=== PATIENT | female | born 1940 | race Hispanic/Latino ===

== ENCOUNTER → 2018-03-20 | Outpatient (CLI) | payer OTHER, MEDICARE ==
[2018-03-20 13:58] LABS: EOSINOPHILS % (AUTO) 4.1 % (0.0-8.0); HEMATOCRIT 31.6 % (36-48); LYMPHOCYTES % (AUTO) 23.9 % (21.0-51.0); MEAN CORPUSCULAR HEMOGLOBIN 25.3 pg (27.0-33.0); MEAN CORPUSCULAR HGB CONC 32.4 g/dL (32.0-36.0); MONOCYTES % (AUTO) 7.3 % (3.0-13.0); NEUTROPHILS % (AUTO) 63.7 % (40.0-77.0); PLATELET COUNT (AUTO) 285 K/uL (130-400); RED BLOOD CELL COUNT(AUTO) 4.05 MIL/uL (4.00-5.50); RED CELL DISTRIBUTION WIDTH 17.1 % (11.0-15.5); WHITE BLOOD COUNT (AUTO) 6.3 K/uL (4.8-10.8)
[2018-03-20 14:03] LABS: CREATININE 1.2 mg/dL (0.5-1.5); POTASSIUM 4.4 mmol/L (3.5-5.1)
== END | disposition home or self-care (01) ==
LOC: LAB 13:26
PROVIDERS: ATTEND Internal Medicine Gastroenterology
DX: K62.89 Other specified diseases of anus and rectum (principal); D50.9 Iron deficiency anemia, unspecified
CPT/HCPCS: 36415; 80048; 85025

== ENCOUNTER → 2018-03-22 | Outpatient (CLI) | payer OTHER, MEDICARE ==
[~2018-03-22] MED LIST: IOPAMIDOL-370 100 ML VIAL IV ONE
== END | disposition home or self-care (01) ==
LOC: OIH 10:39
PROVIDERS: ATTEND Internal Medicine Gastroenterology
DX: K80.20 Calculus of gallbladder without cholecystitis without obstruction (principal); K42.9 Umbilical hernia without obstruction or gangrene; K44.9 Diaphragmatic hernia without obstruction or gangrene; M48.56XA Collapsed vertebra, not elsewhere classified, lumbar region, initial encounter for fracture; M43.17 Spondylolisthesis, lumbosacral region
CPT/HCPCS: 74178; Q9967

== ENCOUNTER 2019-05-22 07:22 | Day surgery (SDC) | payer OTHER, MEDICARE ==
[2019-05-21 12:32] LABS: BASOPHILS % (AUTO) 0.8 % (0.0-5.0); EOSINOPHILS % (AUTO) 3.5 % (0.0-8.0); HEMATOCRIT 29.5 % (36-48); LYMPHOCYTES % (AUTO) 26.6 % (21.0-51.0); MEAN CORPUSCULAR HEMOGLOBIN 29.4 pg (27.0-33.0); MEAN CORPUSCULAR HGB CONC 33.3 g/dL (32.0-36.0); MEAN CORPUSCULAR VOLUME 88.3 fL (79-99); NEUTROPHILS % (AUTO) 63.1 % (40.0-77.0); PLATELET COUNT (AUTO) 227 K/uL (130-400); RED BLOOD CELL COUNT(AUTO) 3.34 MIL/uL (4.00-5.50); RED CELL DISTRIBUTION WIDTH 19.7 % (11.0-15.5); WHITE BLOOD COUNT (AUTO) 5.9 K/uL (4.8-10.8)
[2019-05-21 12:37] LABS: APPEARANCE,URINE Clear (CLEAR); BILIRUBIN,URINE Negative (NEGATIVE); COLOR,URINE Yellow (YELLOW); GLUCOSE, URINE (UA) Negative (NEGATIVE); KETONES,URINE Negative (NEGATIVE); LEUKOCYTE ESTERASE ,URINE Small (NEGATIVE); NITRATE,URINE Negative (NEGATIVE); OCCULT BLOOD,URINE Negative (NEGATIVE); PROTEIN,URINE Negative (NEGATIVE); UROBILINOGEN,URINE 0.2 mg/dL (0.2-1.0)
[2019-05-21 12:39] LABS: CREATININE 1.1 mg/dL (0.5-1.5); POTASSIUM 5.2 mmol/L (3.5-5.1)
[2019-05-21 12:45] LABS: INR 1.35 (0.85-1.15); PARTIAL THROMBOPLASTIN TIME 41.2 SEC (26.3-35.5); PROTHROMBIN TIME 14.1 SEC (9.6-11.6)
[2019-05-21 13:14] LABS: BACTERIA,URINE Rare /HPF (None Seen); RBC,URINE None Seen /HPF (0-1); SQUAMOUS EPITHELIAL CELL,UR 0-2 /HPF (0-2)
[2019-05-21 14:23] VITALS: BP 193/77
--- NOTE | 2019-05-21 15:46 | NUR ---
RAFAEL LIN INFORMED OF PT TAKING STILL TAKING XARELTO. TOOK THIS AM. PER RAFAEL VAZQUEZ OK TO PROCEED WITH PLANNED PROCEDURE.
[~2019-05-22] VITALS: Ht 154.9 cm; Wt 86.8 kg
[2019-05-22] VITALS (15 sets, daily range): BP systolic 113–222; BP diastolic 56–90
[~2019-05-22 07:22] MED LIST changes: +ALBU90AE IH; +CALC625T31 PO; +CART1TAB4 PO; +CHOL200074 PO; +EZET10TA13 PO; +FISH1CAP20 PO; +FLUT1AER IH; -IOPAMIDOL-370 100 ML VIAL IV ONE; +LEVO75TA10 PO; +LISI40TA4 PO; +METF-446 PO; +METO50TA18 PO; +OMEP40CA37 PO; +PIOG15TA66 PO; +RIVA20TA PO; +SITA100T12 PO; +VITA400C70 PO
[2019-05-22] MEDS ORDERED: SODIUM CHLORIDE 0.9% 1000ML 1,000 ML IV SCH ×2 (08:00→12:07)
--- NOTE | 2019-05-22 09:15 | NUR ---
PT BP 182/74 SPOKE WITH ROSMERY BROWN RN/ WHO SPOKE WITH DR. STERLING. PER DR. STERLING ORDER HYDRALAZINE 1OMG IVP.
[2019-05-22] MEDS ORDERED: HYDRALAZINE HCL 20 MG/ML VIAL ONE (09:18)
--- NOTE | 2019-05-22 10:10 | NUR ---
10 MG HYDRALAZINE GIVEN B/P 156/68
[2019-05-22] MEDS ORDERED: IOHEXOL-350 50ML VIAL IV ONE (10:56)
[2019-05-22] MEDS ORDERED: IOHEXOL 350 MG/ML 100ML INFUS..BTL IV ONE (10:56)
[2019-05-22] MEDS ORDERED: NITROGLYCERIN 5 MG/ML 10 ML VIAL IV ONE (10:56)
[2019-05-22] MEDS ORDERED: SODIUM BICARB 50MEQ 50ML VIAL ONE (10:56)
[2019-05-22] MEDS ORDERED: HEPARIN SODIUM 1000UNIT/ML 10ML VIAL ONE (11:17)
[2019-05-22] MEDS ORDERED: MEPERIDINE-PF 25 MG/ML SYG ONE (11:18)
[2019-05-22] MEDS ORDERED: MIDAZOLAM HCL 1 MG/ML 2ML VIAL ONE (11:18)
[2019-05-22] MEDS ORDERED: LIDOCAINE HCL 2% 20ML ONE (11:19)
[2019-05-22] MEDS ORDERED: LABETALOL 20 MG/4 ML DISP.SYRIN IV ONE (11:46)
[2019-05-22] MEDS ORDERED: LABETALOL HCL 5 MG/ML 20ML VIAL IV ONE (11:59)
[2019-05-22] MEDS ORDERED: DEXTROSE 50%-WATER 50 ML DISP.SYRIN IV PRN (12:15)
[2019-05-22] MEDS ORDERED: GLUCAGON 1MG KIT 1 MG ML IM PRN (12:15)
--- NOTE | 2019-05-22 12:30 | NUR ---
PT ARRIVED FROM [facility]PER[facility] FROM [facility] PROCEDURE. PT HAS NO PAIN NO HEMATOMA, PERCLOSE DRESSING DRY AND INTACT. PULSES ARE DOPPLER BILATERALLY.
--- NOTE | 2019-05-22 12:45 | NUR ---
PT RESTING COMFORTABLY, NO PAIN NO HEMATOMA AND DRESSING IS DRY AND INTACT, VS ARE STABLE
--- NOTE | 2019-05-22 13:00 | NUR ---
PT. V/S ARE STABLE NO HEMATOMA NO, PAIN, NO BLEEDING, DRESSING DRY AND INTACT
--- NOTE | 2019-05-22 13:15 | NUR ---
NO HEMATOMA, NO BLEEDING, NO PAIN DRESSING IS DRY AND INTACT.
--- NOTE | 2019-05-22 13:45 | NUR ---
V/S STABLE NO CONCERNS DRESSING DRY AND INTACT
--- NOTE | 2019-05-22 14:15 | NUR ---
PT V/S SIGNS STABLE DRESSING DRY AND INTACT, PEDALS ARE PRESENT WITH DOPPLER
--- NOTE | 2019-05-22 15:00 | NUR ---
RECEIVE REPORT RECEIVED FROM TREVIN BRAGA. PT RECEIVED SUPINE ON BED, STABLE. NOT IN ANY APPARENT DISTRESS. CATH SITE TO RIGHT GROIN SOFT, DRESSING DRY AND INTACT, NO OOZING NO HEMATOMA NOTED. PT INSTRUCTED TO KEEP RIGHT LEG STRAIGHT AND NOT TO ELEVATE HEAD. VERBALIZED UNDERSTANDING.
[2019-05-22] MEDS ORDERED: INSULIN HUMULIN R 100 UNIT/ML 3ML SQ SCH (16:30)
--- NOTE | 2019-05-22 16:30 | NUR ---
NOTE WAITING FOR DAUGHTER TO COME BACK FOR DISCHARGE INSTRUCTIONS AND TO TAKE PT HOME. PT STABLE.
--- NOTE | 2019-05-22 17:32 | NUR ---
DISCHARGE PT DISCHARGED VIA WHEELCHAIR WITH DAUGHTER. PT STABLE. ASYMPTOMATIC. NO COMPLAINTS MADE. CATH SITE TO RIGHT GROIN REMAINS SOFT, NO OOZING NO HEMATOMA NOTED. DISCHARGE INSTRUCTIONS GIVEN AND CATH SITE CARE DEMONSTRATED TO DAUGHTER, VERBALIZED UNDERSTANDING. INSTRUCTED PT/DAUGHTER TO TAKE DUE HOME BP MED AND MONITOR BP AT HOME, IF PERSISTENT ELEVATED, OR PT COMPLAINING OF CARDIAC SYMPTOMS LIKE CHEST PAIN, SOB, DIZZINESS, ETC, GO TO EMERGENCY ROOM. VERBALIZED UNDERSTANDING.
== END 2019-05-22 17:32 | disposition home or self-care (01) ==
LOC: SUH 07:22 → DAH 07:22 → SUH 17:32
PROVIDERS: ATTEND Internal Medicine Cardiovascular Disease
DX: I25.118 Atherosclerotic heart disease of native coronary artery with other forms of angina pectoris (principal); I48.1 Persistent atrial fibrillation; I10 Essential (primary) hypertension; E78.5 Hyperlipidemia, unspecified; E11.9 Type 2 diabetes mellitus without complications; K21.9 Gastro-esophageal reflux disease without esophagitis; E66.01 Morbid (severe) obesity due to excess calories; Z88.0 Allergy status to penicillin; Z68.36 Body mass index [BMI] 36.0-36.9, adult; Z79.899 Other long term (current) drug therapy; Z98.890 Other specified postprocedural states; Z79.4 Long term (current) use of insulin; Z82.49 Family history of ischemic heart disease and other diseases of the circulatory system; Z82.3 Family history of stroke; Z83.3 Family history of diabetes mellitus
CPT/HCPCS: 36415; 71045; 80048; 81001; 82948 ×2; 85025; 85610; 85730; 93005; 93458; A4216; A4221; A4222; A4223 ×3; A4606; C1760; C1894; J0360; J1644; J2175; J2250; J3490 ×4; J7030; Q9965; Q9967 ×2; 99156; 99157

== ENCOUNTER → 2020-04-22 | Outpatient (CLI) | payer OTHER, MEDICARE ==
[~2020-04-22] MED LIST changes: -EZET10TA13 PO; +OMEP40CA13 PO; -OMEP40CA37 PO; +VITA-164 PO; -VITA400C70 PO
== END | disposition home or self-care (01) ==
LOC: SHCH 10:01
PROVIDERS: ATTEND Internal Medicine Cardiovascular Disease
DX: I35.1 Nonrheumatic aortic (valve) insufficiency (principal); R55 Syncope and collapse; I51.7 Cardiomegaly
CPT/HCPCS: 93306; 93356

== ENCOUNTER 2022-09-01 18:31 | Observation (INO) | payer OTHER, MEDICARE ==
[~2022-09-01] VITALS: Ht 157.5 cm; Wt 91.1 kg
[~2022-09-01 18:31] MED LIST changes: -LISI40TA4 PO; +LISI40TA9 PO; -OMEP40CA13 PO; +OMEP40CA21 PO; -VITA-164 PO; +VITA-348 PO
[2022-09-01 19:00] LABS: BASOPHILS % (AUTO) 0.3 % (0.0-5.0); EOSINOPHILS % (AUTO) 10.9 % (0.0-8.0); HEMATOCRIT 29.2 % (36-48); LYMPHOCYTES % (AUTO) 14.9 % (21.0-51.0); MEAN CORPUSCULAR HEMOGLOBIN 25.4 pg (27.0-33.0); MEAN CORPUSCULAR HGB CONC 31.5 g/dL (32.0-36.0); MEAN CORPUSCULAR VOLUME 80.7 fL (79-99); NEUTROPHILS % (AUTO) 68.7 % (40.0-77.0); PLATELET COUNT (AUTO) 217 K/uL (130-400); RED BLOOD CELL COUNT(AUTO) 3.62 MIL/uL (4.00-5.50); RED CELL DISTRIBUTION WIDTH 17.2 % (11.0-15.5); WHITE BLOOD COUNT (AUTO) 8.8 K/uL (4.8-10.8)
[2022-09-01 19:11] LABS: CREATININE 1.1 mg/dL (0.5-1.5); POTASSIUM 5.2 mmol/L (3.5-5.1)
[2022-09-01 19:20] LABS: ALBUMIN 3.9 g/dL (3.5-5.0); TOTAL PROTEIN, SERUM 7.5 g/dL (6.0-8.3)
[2022-09-01 20:20] LABS: APPEARANCE,URINE CLEAR (CLEAR); BILIRUBIN,URINE NEGATIVE (NEGATIVE); COLOR,URINE YELLOW (YELLOW); GLUCOSE, URINE (UA) NEGATIVE (NEGATIVE); KETONES,URINE NEGATIVE (NEGATIVE); LEUKOCYTE ESTERASE ,URINE NEGATIVE Leu/uL (NEGATIVE); NITRATE,URINE NEGATIVE (NEGATIVE); OCCULT BLOOD,URINE NEGATIVE (NEGATIVE); PH,URINE 6.5 (5.0-8.0); PROTEIN,URINE NEGATIVE (NEGATIVE); UROBILINOGEN,URINE 0.2 mg/dL (0.2-1.0)
[2022-09-01] MEDS ORDERED: ACETAMINOPHEN 325 MG TAB PO ONE (22:00)
[2022-09-01] MEDS ORDERED: MAGNESIUM 2GM PREMIX 50ML 50 ML IV ONE (22:00)
[2022-09-01] MEDS ORDERED: 0.9% NACL 500ML IV.SOLN 500 ML IV ONE (22:00)
[2022-09-01] MEDS ORDERED: MECLIZINE HCL 25 MG TABLET PO ONE (22:00)
[2022-09-01] MEDS ORDERED: SOLU-MEDROL 125MG VIAL IVP ONE (22:00)
[2022-09-02] MEDS ORDERED: ACETAMINOPHEN 325 MG TAB PO PRN (02:00)
[2022-09-02] MEDS: 0.9%NACL 1000ML 1,000 ML IV SCH ×3 (02:38→17:52)
[2022-09-02 04:05] VITALS: BP 143/60
[2022-09-02] MEDS ORDERED: SIMV-46 PO (04:36)
[2022-09-02] MEDS ORDERED: FLUT1AER IH (04:36)
[2022-09-02] MEDS ORDERED: MAGNESIUM 2GM PREMIX 50ML 50 ML IV SCH (05:30)
[2022-09-02] MEDS ORDERED: CALCIUM GLUC 1GM/10ML VIAL IVPB SCH (05:30)
[2022-09-02] MEDS ORDERED: 0.9%NACL 50ML IV SCH (05:30)
[2022-09-02 05:48] LABS: HEMATOCRIT 29.1 % (36-48); MEAN CORPUSCULAR HEMOGLOBIN 25.1 pg (27.0-33.0); MEAN CORPUSCULAR HGB CONC 31.3 g/dL (32.0-36.0); MEAN CORPUSCULAR VOLUME 80.2 fL (79-99); RED BLOOD CELL COUNT(AUTO) 3.63 MIL/uL (4.00-5.50); RED CELL DISTRIBUTION WIDTH 16.9 % (11.0-15.5); WHITE BLOOD COUNT (AUTO) 4.4 K/uL (4.8-10.8)
[2022-09-02 06:00] LABS: MAGNESIUM 1.9 mg/dL (1.80-2.40); PHOSPHORUS 3.8 mg/dL (2.5-4.9); POTASSIUM 4.7 mmol/L (3.5-5.1)
[2022-09-02] MEDS: INSULIN HUMULIN R 100 UNIT/ML 3ML SQ SCH ×4 (06:30→20:53)
[2022-09-02 07:30] VITALS: BP 160/68
[2022-09-02] MEDS: RIVAROXABAN 20 MG TABLET PO SCH (08:46)
[2022-09-02] MEDS ORDERED: ENOXAPARIN SODIUM 30 MG/0.3 ML SQ SCH (09:00)
[2022-09-02] MEDS ORDERED: LEVOTHYROXINE 75 MCG TABLET PO SCH (09:00)
[2022-09-02 11:30] VITALS: BP 136/58
[2022-09-02] MEDS ORDERED: HYDRALAZINE 20MG/ML VIAL IV PRN (12:00)
[2022-09-02] MEDS ORDERED: CLONIDINE HCL 0.1 MG TABLET PO PRN (12:00)
[2022-09-02] MEDS: FLUTICASONE/VILANTEROL 1 EACH AER.POW.BA IH SCH (12:01)
[2022-09-02] MEDS: VITAMIN E 400 UNIT CAPSULE PO SCH (14:57)
[2022-09-02] MEDS: PANTOPRAZOLE 40 MG TAB DR PO SCH (14:57)
[2022-09-02 16:00] VITALS: BP 109/77
[2022-09-02 20:00] VITALS: BP 158/68
[2022-09-02] MEDS: METOPROLOL TARTRATE 50 MG TAB PO SCH (20:48)
[2022-09-02] MEDS ORDERED: SIMVASTATIN 20 MG TABLET PO SCH (21:00)
[2022-09-03] VITALS: BP 125/65
[2022-09-03 04:00] VITALS: BP 167/76
[2022-09-03 04:03] VITALS: BP 163/69
[2022-09-03 04:06] VITALS: BP 167/77
[2022-09-03 05:26] LABS: HEMATOCRIT 25.6 % (36-48); MEAN CORPUSCULAR HEMOGLOBIN 25.4 pg (27.0-33.0); MEAN CORPUSCULAR HGB CONC 31.3 g/dL (32.0-36.0); MEAN CORPUSCULAR VOLUME 81.3 fL (79-99); RED BLOOD CELL COUNT(AUTO) 3.15 MIL/uL (4.00-5.50); RED CELL DISTRIBUTION WIDTH 17.2 % (11.0-15.5); WHITE BLOOD COUNT (AUTO) 8.3 K/uL (4.8-10.8)
[2022-09-03 05:30] LABS: RETICULOCYTE % (AUTO) 1.53 % (0.42-2.23)
[2022-09-03 05:47] LABS: MAGNESIUM 1.7 mg/dL (1.80-2.40); PHOSPHORUS 3.1 mg/dL (2.5-4.9); POTASSIUM 4.3 mmol/L (3.5-5.1)
[2022-09-03 06:20] LABS: THYROID STIMULATING HORMONE 1.49 uIU/mL (0.36-3.74)
[2022-09-03 06:25] LABS: % IRON SATURATION 6.1 % (22-44)
[2022-09-03] MEDS: PANTOPRAZOLE 40 MG TAB DR PO SCH (06:34)
[2022-09-03] MEDS: LEVOTHYROXINE 75 MCG TABLET PO SCH ×2 (06:34→08:14)
[2022-09-03] MEDS: INSULIN HUMULIN R 100 UNIT/ML 3ML SQ SCH ×3 (06:34→16:30)
[2022-09-03 08:15] VITALS: BP 174/88
[2022-09-03] MEDS ORDERED: LISINOPRIL 40 MG TABLET PO SCH (09:00)
[2022-09-03] MEDS ORDERED: [UNRECOGNIZED DRUG - REMARK] PO SCH (09:00)
[2022-09-03] MEDS ORDERED: CHOLECALCIFEROL 2000 UNIT PO SCH (09:00)
[2022-09-03] MEDS ORDERED: FISH OIL 1000 MG/CAP PO SCH (09:00)
[2022-09-03] MEDS: VITAMIN E 400 UNIT CAPSULE PO SCH (09:01)
[2022-09-03] MEDS: METOPROLOL TARTRATE 50 MG TAB PO SCH (09:01)
[2022-09-03] MEDS: RIVAROXABAN 20 MG TABLET PO SCH (09:01)
[2022-09-03] MEDS: FLUTICASONE/VILANTEROL 1 EACH AER.POW.BA IH SCH (09:02)
[2022-09-03 12:20] VITALS: BP 135/78
[2022-09-03] MEDS ORDERED: CLON0.1T PO (15:02)
[2022-09-03] MEDS ORDERED: MECL-160 PO (15:02)
[2022-09-03] MEDS ORDERED: AMLO5TAB4 PO (16:17)
== END 2022-09-03 17:20 | disposition home or self-care (01) ==
LOC: EDH 18:31 → EDHIP 09-02 01:49 → 3AH 09-02 03:57
PROVIDERS: ADMIT Internal Medicine Critical Care Medicine; ATTEND Internal Medicine Critical Care Medicine
DX: R42 Dizziness and giddiness (principal); E87.5 Hyperkalemia; E87.1 Hypo-osmolality and hyponatremia; E83.42 Hypomagnesemia; D50.9 Iron deficiency anemia, unspecified; E11.65 Type 2 diabetes mellitus with hyperglycemia; H93.19 Tinnitus, unspecified ear; E03.9 Hypothyroidism, unspecified; I48.20 Chronic atrial fibrillation, unspecified; I10 Essential (primary) hypertension; M19.90 Unspecified osteoarthritis, unspecified site; E66.9 Obesity, unspecified; E78.00 Pure hypercholesterolemia, unspecified; Z79.01 Long term (current) use of anticoagulants; Z79.84 Long term (current) use of oral hypoglycemic drugs; Z79.899 Other long term (current) drug therapy; Z98.890 Other specified postprocedural states; Z68.36 Body mass index [BMI] 36.0-36.9, adult
CPT/HCPCS: 96365; 96366 ×2; 96375; 99285; 83735 ×3; 84484; 80053; 85025; 81003; 36415 ×3; 70450; 93005; 96372; 96361 ×2; 84100 ×2; 80048 ×2; 85027 ×2; 82948 ×7; 93880; 70551; 70544; 84443; 82728; 82607; 93306; 93356; 97161; 97116; 84145; J3475; J7040; J2930; G0378 ×39; J7030; J1815

== ENCOUNTER → 2022-09-14 | Outpatient (CLI) | payer OTHER, MEDICARE ==
[~2022-09-14] MED LIST changes: -ALBU90AE IH; +AMLO5TAB4 PO; +CLON0.1T PO; +MECL-160 PO; +SIMV-46 PO
[2022-09-14 16:19] LABS: BASOPHILS % (AUTO) 0.4 % (0.0-5.0); EOSINOPHILS % (AUTO) 9.6 % (0.0-8.0); LYMPHOCYTES % (AUTO) 16.8 % (21.0-51.0); MEAN CORPUSCULAR HEMOGLOBIN 25.1 pg (27.0-33.0); MEAN CORPUSCULAR VOLUME 80.9 fL (79-99); NEUTROPHILS % (AUTO) 65.8 % (40.0-77.0); PLATELET COUNT (AUTO) 282 K/uL (130-400); RED BLOOD CELL COUNT(AUTO) 3.71 MIL/uL (4.00-5.50); RED CELL DISTRIBUTION WIDTH 17.2 % (11.0-15.5); WHITE BLOOD COUNT (AUTO) 11.4 K/uL (4.8-10.8)
== END | disposition home or self-care (01) ==
LOC: LAB 14:42
PROVIDERS: ATTEND Physician Assistant
DX: I10 Essential (primary) hypertension (principal); E78.5 Hyperlipidemia, unspecified
CPT/HCPCS: 36415; 83735; 85025

== ENCOUNTER → 2023-07-07 | Outpatient (CLI) | payer OTHER, MEDICARE ==
[~2023-07-07] VITALS: Ht 154.9 cm; Wt 87.7 kg
[~2023-07-07] MED LIST changes: -MECL-160 PO; +MECL-302 PO
[2023-07-07 15:59] VITALS: BP 180/90; PULSE 58; RESP 18
[2023-07-07 16:02] LABS: BASOPHILS # (AUTO) 0.01 K/uL (0.00-0.20); BASOPHILS % (AUTO) 0.1 % (0.0-5.0); EOSINOPHILS # (AUTO) 0.02 K/uL (0.00-0.70); EOSINOPHILS % (AUTO) 0.2 % (0.0-8.0); HEMATOCRIT 34.9 % (36-48); IMMATURE GRANULOCYTE ABSOLUTE 0.03 K/uL (0-1); LYMPHOCYTES # (AUTO) 1.6 K/uL (1.0-4.8); LYMPHOCYTES % (AUTO) 17.6 % (21.0-51.0); MEAN CORPUSCULAR HEMOGLOBIN 31.9 pg (27.0-33.0); MEAN CORPUSCULAR HGB CONC 32.7 g/dL (32.0-36.0); MEAN CORPUSCULAR VOLUME 97.8 fL (79-99); MONOCYTES # (AUTO) 0.7 K/uL (0.1-1.0); MONOCYTES % (AUTO) 7.6 % (3.0-13.0); NEUTROPHILS # (AUTO) 6.8 K/uL (1.8-7.7); NEUTROPHILS % (AUTO) 74.2 % (40.0-77.0); PLATELET COUNT (AUTO) 158 K/uL (130-400); RED BLOOD CELL COUNT(AUTO) 3.57 MIL/uL (4.00-5.50); RED CELL DISTRIBUTION WIDTH 13.4 % (11.0-15.5); WHITE BLOOD COUNT (AUTO) 9.2 K/uL (4.8-10.8)
[2023-07-07 16:29] LABS: CREATININE 1.1 mg/dL (0.5-1.5); POTASSIUM 4.7 mmol/L (3.5-5.1)
[2023-07-07 16:59] LABS: INR 1.28 (0.85-1.15); PROTHROMBIN TIME 14.6 SEC (9.6-11.6)
[2023-07-07 17:01] LABS: PARTIAL THROMBOPLASTIN TIME 37.4 SEC (26.3-35.5)
== END | disposition home or self-care (01) ==
LOC: DAH 10:00 → EDSTATUS 07-11 08:00
PROVIDERS: ATTEND Surgery
DX: K60.2 Anal fissure, unspecified (principal); I48.20 Chronic atrial fibrillation, unspecified
CPT/HCPCS: 80048; 85025; 85610; 85730; 36415; 93005; A6260

== ENCOUNTER 2023-07-18 06:20 | Day surgery (SDC) | payer OTHER, MEDICARE ==
[2023-07-11 17:00] VITALS: BP 180/90; PULSE 58; RESP 18
[~2023-07-18] VITALS: Ht 154.9 cm; Wt 87.7 kg
[~2023-07-18 06:20] MED LIST changes: -AMLO5TAB4 PO; +CALCIUM PO; -CART1TAB4 PO; +EZET10TA48 PO; +GABA300C PO; -MECL-302 PO; +MULTIVITAMIN 50+ PO; -OMEP40CA21 PO; +PANT40TA54 PO; +VIT D PO
[2023-07-18 06:30] VITALS: BP 177/70; PULSE 104; RESP 15
[2023-07-18] MEDS ORDERED: BOTULINUM TOXIN TYPE A 100 UNITS/VIAL INJ ONE (07:01)
[2023-07-18] MEDS ORDERED: PROPOFOL 10 MG/ML 20ML VIAL IV ONE ×2 (07:27)
[2023-07-18] MEDS ORDERED: LIDOCAINE PF 100MG/5ML (2%) SYRINGE 5ML ONE (07:28)
== END 2023-07-18 08:40 ==
LOC: DAH 06:20
PROVIDERS: ATTEND Surgery
DX: K60.2 Anal fissure, unspecified (principal); K62.5 Hemorrhage of anus and rectum; I10 Essential (primary) hypertension; M81.0 Age-related osteoporosis without current pathological fracture; E78.5 Hyperlipidemia, unspecified; E11.9 Type 2 diabetes mellitus without complications; K21.9 Gastro-esophageal reflux disease without esophagitis; K44.9 Diaphragmatic hernia without obstruction or gangrene; K64.9 Unspecified hemorrhoids; K76.0 Fatty (change of) liver, not elsewhere classified; Z83.3 Family history of diabetes mellitus; Z80.9 Family history of malignant neoplasm, unspecified; Z88.0 Allergy status to penicillin; Z82.49 Family history of ischemic heart disease and other diseases of the circulatory system; Z79.84 Long term (current) use of oral hypoglycemic drugs; Z79.890 Hormone replacement therapy; Z79.899 Other long term (current) drug therapy; Z98.890 Other specified postprocedural states
CPT/HCPCS: 45330; J2001; J2704 ×2; J0585; A4620; A4215 ×3; A4223; A7002; A4222; A4221; A4663; A4216; J7030; A4606; 45335; J3490

== ENCOUNTER → 2023-09-26 | Outpatient (CLI) | payer OTHER, MEDICARE | END | disposition home or self-care (01) | LOC: SHCH 09:55 | PROVIDERS: ATTEND Internal Medicine Cardiovascular Disease | DX: I35.0 Nonrheumatic aortic (valve) stenosis (principal) | CPT/HCPCS: 93306 ==

== ENCOUNTER → 2024-01-09 | Outpatient (CLI) | payer OTHER, MEDICARE ==
[2024-01-09 12:10] LABS: BASOPHILS # (AUTO) 0.05 K/uL (0.00-0.20); BASOPHILS % (AUTO) 0.9 % (0.0-5.0); EOSINOPHILS # (AUTO) 0.54 K/uL (0.00-0.70); EOSINOPHILS % (AUTO) 9.6 % (0.0-8.0); IMMATURE GRANULOCYTE ABSOLUTE 0.02 K/uL (0-1); LYMPHOCYTES # (AUTO) 1.5 K/uL (1.0-4.8); MEAN CORPUSCULAR HEMOGLOBIN 30.3 pg (27.0-33.0); MEAN CORPUSCULAR HGB CONC 32.4 g/dL (32.0-36.0); MEAN CORPUSCULAR VOLUME 93.6 fL (79-99); MONOCYTES # (AUTO) 0.4 K/uL (0.1-1.0); MONOCYTES % (AUTO) 7.8 % (3.0-13.0); NEUTROPHILS # (AUTO) 3.1 K/uL (1.8-7.7); NEUTROPHILS % (AUTO) 54.3 % (40.0-77.0); PLATELET COUNT (AUTO) 200 K/uL (130-400); RED BLOOD CELL COUNT(AUTO) 4.06 MIL/uL (4.00-5.50); RED CELL DISTRIBUTION WIDTH 17.4 % (11.0-15.5); WHITE BLOOD COUNT (AUTO) 5.6 K/uL (4.8-10.8)
[2024-01-09 12:45] LABS: ALBUMIN 3.9 g/dL (3.5-5.0); BILIRUBIN,TOTAL 0.4 mg/dL (0.2-1.0); CREATININE 1.2 mg/dL (0.5-1.0); MAGNESIUM 1.2 mg/dL (1.80-2.40); POTASSIUM 4.4 mmol/L (3.5-5.1); TOTAL PROTEIN, SERUM 7.7 g/dL (6.0-8.3)
== END | disposition home or self-care (01) ==
LOC: LAB 10:50
PROVIDERS: ATTEND Internal Medicine Cardiovascular Disease
DX: I10 Essential (primary) hypertension (principal); E78.5 Hyperlipidemia, unspecified
CPT/HCPCS: 36415; 80053; 83735; 83880; 85025

== ENCOUNTER → 2024-01-24 | Outpatient (CLI) | payer OTHER, MEDICARE ==
[2024-01-24 11:55] LABS: BASOPHILS # (AUTO) 0.03 K/uL (0.00-0.20); BASOPHILS % (AUTO) 0.4 % (0.0-5.0); EOSINOPHILS # (AUTO) 1.08 K/uL (0.00-0.70); EOSINOPHILS % (AUTO) 15.7 % (0.0-8.0); HEMATOCRIT 38.8 % (36-48); IMMATURE GRANULOCYTE ABSOLUTE 0.03 K/uL (0-1); LYMPHOCYTES # (AUTO) 2.2 K/uL (1.0-4.8); LYMPHOCYTES % (AUTO) 31.6 % (21.0-51.0); MEAN CORPUSCULAR HEMOGLOBIN 30.1 pg (27.0-33.0); MEAN CORPUSCULAR HGB CONC 33.5 g/dL (32.0-36.0); MEAN CORPUSCULAR VOLUME 89.8 fL (79-99); MONOCYTES # (AUTO) 0.5 K/uL (0.1-1.0); MONOCYTES % (AUTO) 7.1 % (3.0-13.0); NEUTROPHILS # (AUTO) 3.1 K/uL (1.8-7.7); NEUTROPHILS % (AUTO) 44.8 % (40.0-77.0); PLATELET COUNT (AUTO) 188 K/uL (130-400); RED BLOOD CELL COUNT(AUTO) 4.32 MIL/uL (4.00-5.50); WHITE BLOOD COUNT (AUTO) 6.9 K/uL (4.8-10.8)
[2024-01-24 12:15] LABS: ALBUMIN 3.8 g/dL (3.5-5.0); BILIRUBIN,TOTAL 0.4 mg/dL (0.2-1.0); CREATININE 1.6 mg/dL (0.5-1.0); MAGNESIUM 1.7 mg/dL (1.80-2.40); POTASSIUM 5.2 mmol/L (3.5-5.1); T4 (THYROXINE) 8.2 ug/dL (4.7-13.3); THYROID STIMULATING HORMONE 4.22 uIU/mL (0.36-3.74); TOTAL PROTEIN, SERUM 7.5 g/dL (6.0-8.3)
== END | disposition home or self-care (01) ==
LOC: LAB 10:38
PROVIDERS: ATTEND Internal Medicine Cardiovascular Disease
DX: I10 Essential (primary) hypertension (principal); E78.5 Hyperlipidemia, unspecified
CPT/HCPCS: 36415; 80053; 83735; 83880; 84436; 84443; 84479; 85025

== ENCOUNTER → 2024-05-01 | Outpatient (CLI) | payer OTHER, MEDICARE ==
[2024-05-01 16:54] LABS: ALBUMIN 4.1 g/dL (3.5-5.0); BILIRUBIN,TOTAL 0.5 mg/dL (0.2-1.0); CREATININE 1.8 mg/dL (0.5-1.0); POTASSIUM 4.6 mmol/L (3.5-5.1); TOTAL PROTEIN, SERUM 7.6 g/dL (6.0-8.3)
== END | disposition home or self-care (01) ==
LOC: LAB 13:27
PROVIDERS: ATTEND Internal Medicine Cardiovascular Disease
DX: I10 Essential (primary) hypertension (principal)
CPT/HCPCS: 36415; 80053; 83735; 83880

== ENCOUNTER → 2024-10-11 | Outpatient (CLI) | payer OTHER, MEDICARE ==
--- NOTE | 2024-10-15 11:54 | HMCSR ---
APPROVED REPORT Laterality: Bilateral Indications r09.89 Doppler Spectral Velocity Analysis PSV / EDVPSV / EDV ECA (R) 60 / cm/sECA (L) 59 / cm/s dICA (R) 65 / 23 cm/sdICA (L) 98 / 33 cm/s Payton (R) 49 / 17 cm/smICA (L) 49 / 14 cm/s pICA (R) 49 / 19 cm/spICA (L) 38 / 16 cm/s dCCA (R) 36 / 9 cm/sdCCA (L) 56 / 16 cm/s mCCA (R) 114 / 23 cm/smCCA (L) 64 / 15 cm/s pCCA (R) 65 / 13 cm/spCCA (L) 61 / 15 cm/s Vert (R) 54 / cm/sVert (L) 25 / cm/s Subl. (R) 131 / cm/sSubl. (L) 114 / cm/s ICA/CCA 0.57ICA/CCA 1.53 Technologist Impression Minimal plaque noted in the bilateral carotids, without hemodynamic significance. Bilateral vertebral arteries appear antegrade. Conclusion Minimal plaque noted in the bilateral carotids, without hemodynamic significance. Bilateral vertebral arteries appear antegrade. Conclusion Minimal plaque noted in the bilateral carotids, without hemodynamic significance. Bilateral vertebral arteries appear antegrade.
== END | disposition home or self-care (01) ==
LOC: SHCH 08:30
PROVIDERS: ATTEND Internal Medicine Cardiovascular Disease
DX: R09.89 Other specified symptoms and signs involving the circulatory and respiratory systems (principal)
CPT/HCPCS: 93880

== ENCOUNTER → 2024-12-16 | Outpatient (CLI) | payer OTHER, MEDICARE ==
--- NOTE | 2024-12-16 17:38 | HMCIMG ---
KNEE 2VW BILATERAL REASON: BILATERAL KNEE PAIN. COMPARISON: None TECHNIQUE: 3 images of bilateral knees were obtained. FINDINGS: Medial femorotibial joint space narrowing are seen bilaterally. There is no acute displaced fracture or dislocation. IMPRESSION: Findings as described above.
== END | disposition home or self-care (01) ==
LOC: RAH 16:27
PROVIDERS: ATTEND Pain Medicine Interventional Pain Medicine
DX: M25.862 Other specified joint disorders, left knee (principal); M25.861 Other specified joint disorders, right knee; M25.561 Pain in right knee; M25.562 Pain in left knee